=== PATIENT | female | born 1955 | race Caucasian/White ===

== ENCOUNTER → 2019-12-05 11:42 | Outpatient (CLI) | payer MEDICARE, SELFPAY ==
--- NOTE | 2019-12-05 | DI.MRI.S_ITS ---
PROCEDURE: MR KNEE RT WO CON INDICATIONS: He had heard knee 1 passing out. Swollen and pain anterior to knee cap. TECHNIQUE: Noncontrast sagittal PD fast spin echo and T2 fast spin echo with fat saturation, sagittal 3-D FLASH with fat saturation; coronal T1 spin echo and PD fast spin echo with fat saturation, and axial PD fast spin echo with fat saturation through the knee. COMPARISON: [facility], CR, XR KNEE 3 VIEWS RIGHT, 09/19/2019, 11:47. [facility], CR, XR KNEE ARTHRITIC SERIES RT, 11/19/2019, 10:15. FINDINGS: Image quality: Excellent. Menisci: The medial and lateral menisci demonstrate normal morphology and internal signal. The meniscal root ligaments appear intact. Cruciate ligaments: The anterior and posterior cruciate ligaments appear intact. Medial structures: The medial collateral ligament appears intact. The semimembranosus tendon insertions and meniscocapsular junction appear intact. Visualized portions of the pes anserinus tendons appear normal. No abnormal bursal fluid. Lateral structures: The lateral collateral ligament, long and short heads of the biceps femoris tendon appear intact. The popliteus tendon appears normal. Iliotibial band appears normal. Anterior structures: There is a complex fluid collection in the prepatellar soft tissue measuring 0.9 cm AP, 2.6 cm transverse and 4.1 cm cephalocaudal, consistent with a hematoma. There is increased T2 signal in the distal quadriceps tendon at the patellar attachment, consistent with tendinitis.The quadriceps and patellar tendons appear intact. Patellar alignment is normal. No femoral trochlear dysplasia or ventral trochlear prominence. No edema in the infrapatellar fat pad. Bones and cartilage: No bone marrow contusions or fractures. Mild tricompartmental cartilage thinning and fibrillation. Joint space: There is small knee joint effusion. No Quevedo's cyst. Normal appearing synovial plicae are incidentally noted. IMPRESSION: 1. A 0.9 x 2.6 x 4.1 cm complex fluid collection in the prepatellar soft tissue consistent with a hematoma. 2. Quadriceps tendinitis. 3. Small knee joint effusion. 4. Mild tricompartmental cartilage thinning and fibrillation. Dictated by: Mitch Nguyễn M.D. on 12/05/2019 at 12:41 Approved by: Mitch Nguyễn M.D. on 12/05/2019 at 17:35
== END ==
PROVIDERS: PCP Internal Medicine; Referring Provider Orthopaedic Surgery; Visit Provider Orthopaedic Surgery
DX: M25.461 Effusion, right knee (principal); M25.561 Pain in right knee; M76.51 Patellar tendinitis, right knee
CPT/HCPCS: 73721